=== PATIENT | male | born 1995 | race African-American/Black ===

== ENCOUNTER 2018-01-16 21:08 | Emergency (ER) | payer OTHER ==
[2018-01-16 21:28] VITALS: BP 150/83; PULSE 111; TEMP 97.8; BMI 22.1
--- NOTE | 2018-01-16 23:26 | PDOC ---
History of Present Illness <Carmina Patrick - Last Filed: 01/17/18 02:14> - General History Source: Patient, Sibling (Sister) Exam Limitations: No Limitations (pt has some developmental delay, but ) - History of Present Illness Initial Comments: Pt, with PMH of developmental delay (just finished high school at age 22) and eczema, presents with clear nasal discharge, headache, cough of clear phlegm, and 3 episodes of vomiting clear fluid/phlegm. Pt states his seasonal allergies started yesterday evening, with congestion. He awoke this morning with worsening congestion, clear rhinorrhea, sore throat, cough productive of clear sputum, and had 3 episodes of post-tussive vomiting. The pt took one benadryl PO this afternoon around 4 pm, which relieved his congestion, but he still felt nauseous and had diffuse abdominal pain after vomiting. He denies fevers/chills , chest pain, SOB, chest pain, syncope, palpitations, diarrhea/constipation, dysuria, hematuria, or leg swelling. 01/17/18 00:53 <Thuy Titus - Last Filed: 01/17/18 02:24> - General Chief Complaint: Nausea/Vomiting Stated Complaint: VOMITING Time Seen by Provider: 01/16/18 23:24 Past History <Carmina Patrick - Last Filed: 01/17/18 02:14> - Travel Traveled outside of the country in the last 30 days: No Close contact w/someone who was outside of country & ill: No - Past Medical History Cardiac Disorders: No CVA: No COPD: No DVT: No Diabetes: No GI Disorders: No HTN: No Seizures: No Other medical history: Developmental Delay - Surgical History Abdominal Surgery: No GI Surgery: No - Family Disease History Comment:: Pt adopted, limited family history. 01/17/18 01:15 - Immunization History Immunization Up to Date: Yes - Suicide/Smoking/Psychosocial Hx Smoking Status: No Smoking History: Never smoked Number of Cigarettes Smoked Daily: 0 Information on smoking cessation initiated: No Hx Alcohol Use: No Drug/Substance Use Hx: No Substance Use Type: None <Thuy Titus - Last Filed: 01/17/18 02:24> - Past Medical History Allergies/Adverse Reactions: Allergies Allergy/AdvReac Type Severity Reaction Status Date / Time No Known Allergies Allergy Verified 01/06/14 17:30 Home Medications: Ambulatory Orders Ibuprofen [Motrin -] 600 mg PO Q6H PRN #18 tablet 01/06/14 No Home Medications 0 dose .ROUTE UTDICT 01/06/14 Sulfamethoxazole/Trimethoprim [Bactrim DS -] 1 tab PO BID #13 tablet 01/06/14 Cetirizine HCl [Zyrtec -] 10 mg PO DAILY #30 tablet 01/17/18 Mometasone Furoate [Elocon] 45 gm TP BID #1 oint...g. 01/17/18 Review of Systems - Review of Systems Able to Perform ROS?: Yes Is the patient limited Mexican proficient: No Constitutional: Yes: Weight Stable. No: Chills, Diaphoresis, Fever, Loss of Appetite HEENTM: Yes: Nose Congestion, Throat Pain. No: Recent change in vision, Double Vision, Ear Discharge, Nose Bleeding, Difficulty Swallowing, Mouth Swelling Respiratory: Yes: Cough, Productive cough (clear sputum). No: Orthopnea, Shortness of Breath, Wheezing Cardiac (ROS): No: Chest Pain, Edema, Irregular Heart Rate, Lightheadedness, Palpitations, Syncope, Chest Tightness ABD/GI: Yes: Nausea, Poor Appetite, Poor Fluid Intake (since vomiting today. Able to keep down some water.). No: Abdominal Distended, Blood Streaked Bowels , Constipated, Diarrhea, Difficulty Swallowing : No: Burning, Dysuria, Frequency, Flank Pain, Hematuria, Pain, Urgency, Testicular Pain Musculoskeletal: No: Back Pain, Joint Pain, Muscle Weakness Integumentary: No: Bruising, Rash, Sweating Neurological: Yes: Headache (occipital headache after vomiting). No: Seizure, Weakness, Unsteady Gait, Ataxia Psychiatric: No: Sleep Pattern Change, Change in Appetite Endocrine: No: Increased Urine, Change in Weight Hematologic/Lymphatic: No: Anemia, Blood Clots, Easy Bleeding, Swollen Glands All Other Systems: Reviewed and Negative <Thuy Titus - Last Filed: 01/17/18 02:24> *Physical Exam - Vital Signs Last Vital Signs Temp Pulse Resp BP Pulse Ox 97.8 F 111 H 20 150/83 97 01/16/18 21:24 01/16/18 21:24 01/16/18 21:24 01/16/18 21:24 01/16/18 21:24 <Carmina Patrick - Last Filed: 01/17/18 02:14> - Vital Signs Last Vital Signs Temp Pulse Resp BP Pulse Ox 97.8 F 111 H 20 150/83 97 01/16/18 21:24 01/16/18 21:24 01/16/18 21:24 01/16/18 21:24 01/16/18 21:24 - Physical Exam General Appearance: Yes: Nourished, Appropriately Dressed. No: Apparent Distress HEENT: positive: EOMI, MIL, Normal Voice, Symmetrical, Pharyngeal Erythema, Tonsillar Erythema, Nasal Congestion, Rhinorrhea (clear), Hearing Grossly Normal. negative: Normal ENT Inspection, TMs Normal, Pharynx Normal, Photophobia, Scleral Icterus (R), Scleral Icterus (L), Muffled/Hoarse voice, Tonsillar Exudate, Sinus Tenderness, Hearing Decreased, TM Bulging, TM Dull, TM Erythema (TM cloudy, non-erythematous, no bulging), Excessive drooling Neck: positive: Trachea midline, Normal Thyroid, Supple. negative: Tender, Rigid, Stridor, Lymphadenopathy (R), Lymphadenopathy (L) Respiratory/Chest: positive: Lungs Clear, Normal Breath Sounds. negative: Chest Tender, Respiratory Distress, Accessory Muscle Use, Crackles, Wheezing Cardiovascular: positive: Regular Rhythm, Regular Rate, S1, S2. negative: Edema , JVD, Murmur Vascular Pulses: Carotid (R): 4+, Carotid (L): 4+ Gastrointestinal/Abdominal: positive: Normal Bowel Sounds, Tender (diffuse lower abdominal pain), Flat, Soft. negative: Organomegaly, Pulsatile Mass, Protuberent, Distended, Guarding, Rebound Lymphatic: negative: Adenopathy, Tenderness Musculoskeletal: positive: Normal Inspection. negative: CVA Tenderness Extremity: positive: Normal Capillary Refill, Normal Inspection, Normal Range of Motion, Pelvis Stable. negative: Tender, Delayed Capillary Refill (cap refill normal, no skin tenting), Pedal Edema Integumentary: positive: Normal Color, Dry, Warm. negative: Petechiae, Rash, Ecchymosis, Bruising Neurologic: positive: vp organizational development II-XII NML intact, Fully Oriented, Alert, Normal Mood/ Affect, Normal Response, Motor Strength 5/5 <Thuy Titus - Last Filed: 01/17/18 02:24> ED Treatment Course - LABORATORY CBC & Chemistry Diagram: 01/17/18 01:03 01/17/18 01:03 - ADDITIONAL ORDERS Additional order review: Laboratory Results 01/17/18 01:03 Sodium 140 Potassium 4.4 Chloride 109 H Carbon Dioxide 24 Anion Gap 7 L BUN 24 H Creatinine 1.3 Creat Clearance w eGFR > 60 Random Glucose 92 Calcium 8.9 Total Bilirubin 0.3 AST 19 ALT 39 Alkaline Phosphatase 88 Total Protein 6.9 Albumin 3.8 01/17/18 00:15 Group A Strep Rapid Antigen - Preliminary Throat 01/17/18 01:03 RBC 5.46 MCV 82.5 MCHC 34.0 RDW 14.3 MPV 8.3 Neutrophils % 67.2 Lymphocytes % 18.3 Monocytes % 10.5 H Eosinophils % 3.3 Basophils % 0.7 - Medications Given in the ED: ED Medications Discontinued Medications Generic Name Dose Route Start Last Admin Trade Name Freq PRN Reason Stop Dose Admin Acetaminophen 1,000 mg 01/16/18 23:51 01/17/18 00:00 Ofirmev Injection - IVPB 01/16/18 23:52 1,000 mg ONCE ONE Administration Diphenhydramine HCl 50 mg 01/17/18 00:45 01/17/18 01:28 Benadryl Injection - IVPUSH 01/17/18 00:46 50 mg ONCE ONE Administration Sodium Chloride 1,000 mls @ 1,000 mls/hr 01/16/18 23:52 01/17/18 00:00 Normal Saline - IV 01/17/18 00:51 1,000 mls/hr ASDIR STA Administration <Carmina Patrick - Last Filed: 01/17/18 02:14> - LABORATORY CBC & Chemistry Diagram: 01/17/18 01:03 01/17/18 01:03 <Thuy Titus - Last Filed: 01/17/18 02:24> Medical Decision Making - Medical Decision Making Pt seen at bedside and discussed with Dr. Patrick. Pt has clear rhinorrhea, boggy nasal turbinates, tonsillar erythema, and vomiting/coughing of clear phlegm. Pt has had decreased oral intake over the past day, due to nausea and phlegm production. Consistent with allergies with post-nasal drip, ordered 1L NS, ofirmev, and benadryl (50 mg IV diluted). Also ordered CBC, CMP, and rapid strep test to r/o strep pharyngitis. 01/17/18 00:08 Will reassess after fluids and medication. If improved, pt can be discharged home. 01/17/18 01:21 Nurse able to collect arterial sample for CBC and CMP due to difficult venous access. Sent zyrtec for allergies and elocon (topical steroids) for eczema to pharmacy. 01/17/18 01:22 CBC, CMP and rapid strep negative. Pt nausea and congestion improved after fluids and benadryl. Pt was able to tolerate PO fluids (1 cup juice) before leaving the ER. Pt being driven home by sister. 01/17/18 02:20 <Thuy Titus - Last Filed: 01/17/18 02:24> *DC/Admit/Observation/Transfer - Discharge Dispostion Decision to Admit order: No <Carmina Patrick - Last Filed: 01/17/18 02:14> - Discharge Dispostion Decision to Admit order: No <Thuy Titus - Last Filed: 01/17/18 02:24> Diagnosis at time of Disposition: Viral illness - Discharge Dispostion Disposition: HOME Condition at time of disposition: Improved - Prescriptions Prescriptions: Cetirizine HCl [Zyrtec -] 10 mg PO DAILY #30 tablet Mometasone Furoate [Elocon] 45 gm TP BID #1 oint...g. - Referrals Referrals: Lane Sanford MD [Primary Care Provider] - - Patient Instructions Printed Discharge Instructions: Eczema, Common Cold - Post Discharge Activity
--- NOTE | 2018-01-16 23:29 | PDOC ---
Attending Attestation - HPI HPI: 01/17/18 00:43 The patient is a 22 year old male with past medical history of Developmental Delay presents to the emergency department with a fever. The patient presents with subjective fever, accompanied with runny nose, nasal congestion which presented yesterday and symptoms of sore throat, productive cough and few episodes of nonbloody-bilious emesis. The patient reports taking benadryl at 4: 00 pm. Denies chills or headache. Denies chest pain or shortness of breath. Denies abdominal pain. Denies diarrhea or constipation. Denies dysuria, hematuria, frequency or urgency to urinate. Allergies: NKDA Social history: None reported PCP: Lane Sanford MD - Physicial Exam PE: 01/17/18 00:44 GENERAL: (+) Afebrile. Awake, alert, and fully oriented, in no acute distress HEAD: No signs of trauma EYES: PERRLA, EOMI, sclera anicteric, conjunctiva clear ENT: Auricles normal inspection, hearing grossly normal, nares patent, oropharynx clear without exudates. Moist mucosa NECK: Normal ROM, supple, no lymphadenopathy, JVD, or masses LUNGS: Breath sounds equal, clear to auscultation bilaterally. No wheezes, and no crackles HEART: (+) Tachycardia. Regular rate and rhythm, normal S1 and S2, no murmurs, rubs or gallops ABDOMEN: Soft, nontender, normoactive bowel sounds. No guarding, no rebound. No masses EXTREMITIES:(+) Bilateral patches of eczema to the antecubital area and wrist. Normal range of motion, no edema. No clubbing or cyanosis. No cords, erythema, or tenderness NEUROLOGICAL: Cranial nerves II through XII grossly intact. Normal speech, normal gait SKIN: (+) Dry. Warm, normal turgor, no rashes or lesions noted. - Medical Decision Making 01/17/18 00:44 Documentation prepared by Li David, acting as medical and scientific illustrator for Carmina Patrick MD. <Li David - Last Filed: 01/17/18 00:44> - Resident Resident Name: Thuy Titus - ED Attending Attestation I have performed the following: I have examined & evaluated the patient, The case was reviewed & discussed with the resident, I agree w/resident's findings & plan - Medical Decision Making 01/17/18 01:05 Pt will be hydrated. His exam is normal. I will treat with decadron and he can go home with elocon cream for his eczema. <Carmina Patrick - Last Filed: 01/17/18 01:05>
[2018-01-16] MEDS ORDERED: ACETAMINOPHEN 1000 MG/100 ML VIAL (NON FORMULARY) IVPB ONE (23:51)
[2018-01-16] MEDS ORDERED: SODIUM CHLORIDE 1,000 ML IV STA (23:52)
[2018-01-17] MEDS ORDERED: ACETAMINOPHEN INJECTION 100 ML IVPB ONE (00:34)
[2018-01-17] MEDS ORDERED: DEXAMETHASONE LIQUID 0.5 MG/5 ML 240 ML BULK BOTTLE PO ONE (00:56)
[2018-01-17 01:35] LABS: BASO % 0.7 % (0-2.0); EOS % 3.3 % (0-4.5); HEMATOCRIT 45.1 % (35.4-49); HEMOGLOBIN 15.3 GM/dL (11.7-16.9); LYMPH % 18.3 % (8-40); MCH 28.1 pg (25.7-33.7); MEAN CELL VOLUME 82.5 fl (80-96); MEAN PLT VOLUME 8.3 fl (7.5-11.1); MONO % 10.5 % (3.8-10.2); NEUT % 67.2 % (42.8-82.8); PLATELET COUNT 167 K/MM3 (134-434); RBC 5.46 M/mm3 (4.00-5.60); RDW 14.3 % (11.9-15.9); WHITE BLOOD COUNT 8.7 K/mm3 (4.0-10.0)
[2018-01-17 01:55] LABS: ALBUMIN 3.8 g/dl (3.4-5.0); ALK PHOS 88 U/L (45-117); ANION GAP 7 (8-16); BILIRUBIN,TOTAL 0.3 mg/dL (0.2-1.0); BLOOD UREA NITROGEN 24 mg/dL (7-18); CALCIUM 8.9 mg/dL (8.5-10.1); CHLORIDE 109 mmol/L (98-107); CO2 24 mmol/L (21-32); CREATININE 1.3 mg/dL (0.7-1.3); GLUCOSE,RANDOM 92 mg/dL (74-106); POTASSIUM 4.4 mmol/L (3.5-5.1); SGOT/AST 19 U/L (15-37); SGPT/ALT 39 U/L (12-78); SODIUM 140 mmol/L (136-145); TOT PROT 6.9 g/dl (6.4-8.2)
== END 2018-01-17 02:43 | disposition home or self-care (01) ==
LOC: JER 21:08
PROC: 3E033NZ Introduction of Analgesics, Hypnotics, Sedatives into Peripheral Vein, Percutaneous Approach (ICD-10-PCS; principal; 2018-01-16)
PROC: 3E033GC Introduction of Other Therapeutic Substance into Peripheral Vein, Percutaneous Approach (ICD-10-PCS; 2018-01-16)
DX: J00 Acute nasopharyngitis [common cold] (principal); B97.89 Other viral agents as the cause of diseases classified elsewhere; L30.9 Dermatitis, unspecified; F81.9 Developmental disorder of scholastic skills, unspecified
CPT/HCPCS: 36415; 80053; 85025; 87070; 87430; 96374; 96375; 99281-25; J0131; J7030

== ENCOUNTER 2021-03-24 08:24 | Emergency (ER) | payer OTHER ==
[2021-03-24 08:34] VITALS: BP 142/99; PULSE 88; TEMP 98.4; BMI 31.4
== END 2021-03-24 09:45 | disposition home or self-care (01) ==
LOC: JER 08:24
DX: J06.9 Acute upper respiratory infection, unspecified (principal); Z11.52 Encounter for screening for COVID-19
CPT/HCPCS: 99283-25; C9803; U0003; U0005

== ENCOUNTER 2022-10-15 22:21 | Emergency (ER) | payer OTHER ==
[2022-10-15] MEDS ORDERED: LORazepam 2 MG TABLET PO ONE ×2 (22:48→22:49)
[2022-10-15 22:51] VITALS: TEMP 98.9; BMI 31.8
[2022-10-15] MEDS ORDERED: LORazepam 1 MG TABLET ONE (22:53)
[2022-10-16 01:15] VITALS: BP 131/62; PULSE 94; RESP 18
== END 2022-10-16 02:50 | disposition home or self-care (01) ==
LOC: JER 22:21
DX: F12.129 Cannabis abuse with intoxication, unspecified (principal); R41.9 Unspecified symptoms and signs involving cognitive functions and awareness
CPT/HCPCS: 93005; 93010; 99283-25